=== PATIENT | male | born 1990 | race Caucasian/White ===

== ENCOUNTER 2017-03-25 07:46 | Day surgery (SDC) | payer BC ==
[2017-03-20 13:22] VITALS: BMI 21.6
[2017-03-25] MEDS ORDERED: LIDOCAINE HCL 1%, 10 MG/ML (20ML VIAL) ONE (08:37)
[2017-03-25] MEDS ORDERED: LIDOCAINE HCL 2% (20ML MULTI-DOSE VIAL) NR ONE (08:37)
[2017-03-25] MEDS ORDERED: LIDOCAINE 1%/EPI 1:100000 (20 ML MULTI DOSE VIAL) ONE (08:38)
[2017-03-25] MEDS ORDERED: BUPIVACAINE HCL/PF 0.5% (5MG/ML) 10 ML VIAL ONE (08:38)
[2017-03-25] MEDS ORDERED: BUPIVACAINE HCL/PF 2.5 MG/ML - 30 ML VIAL IJ ONE (08:38)
[2017-03-25] MEDS ORDERED: MIDAZOLAM HCL 2 MG/2 ML SINGLE DOSE VIAL ONE (09:00)
[2017-03-25] MEDS ORDERED: ceFAZolin SODIUM 1 GM VIAL ONE (09:36)
[2017-03-25] MEDS ORDERED: LIDOCAINE 1%/EPI 1:100000 (50 ML MULTI DOSE VIAL) INF ONE (09:46)
[2017-03-25] MEDS ORDERED: ONDANSETRON 4 MG/2 ML VIAL ONE (09:46)
--- NOTE | 2017-03-25 10:39 | OP ---
DATE OF OPERATION: 03/25/2017 PREOPERATIVE DIAGNOSIS: Scalp cyst. POSTOPERATIVE DIAGNOSIS: Scalp cyst. PROCEDURE: Excision of scalp cyst with 5-mm wound closure. SURGEON: Srinivas Myrick MD PATIENT ASSISTANT: None. ANESTHESIA: Bambi Bales MD (MAC/1% lidocaine with epinephrine approximately 10 mL). ESTIMATED BLOOD LOSS: Minimal. SPECIMENS: Cyst. INDICATION FOR THE PROCEDURE: This is a gentleman with a chronic scalp cyst that is causing him discomfort and he wishes to have this removed. DESCRIPTION OF PROCEDURE: The patient was identified and appropriately positioned on the operating room table. After intravenous sedation, the area was prepped and draped in the usual sterile fashion with Betadine. Lidocaine 1% with epinephrine was used for anesthesia of approximately 10 mL. The skin around the cyst was incised in elliptical fashion orientated longitudinally. The cyst was excised en bloc and intact. Hemostasis was achieved with cautery as needed. The wound reapproximated in layers. The dermis was closed with interrupted buried 3-0 chromic suture and the skin closed with interrupted vertical mattress Prolene followed by Dermabond. At the conclusion of the case, sponge and needle counts were correct. Brief operative note handwritten on the preprinted form. Joselyn FALCON [id number] MTDD
[2017-03-25 11:41] VITALS: TEMP 98.1
[2017-03-25 11:44] VITALS: BP 121/71; PULSE 82
--- NOTE | 2017-03-26 13:34 | PATH ---
Surgical Pathology Report Patient Name: TIFF CRUZ [facility]. Rec. #: [id number] /Age/Gender: 1990 (Age: 26) / M Account: [id number] Location: [facility] AMBULATORY Taken: 03/25/2017 Received: 03/25/2017 Reported: 03/26/2017 Physicians: Srinivas Myrick Specimen(s) Received SCALP CYST Clinical History Scalp cyst Final Diagnosis SKIN, SCALP, EXCISION: BENIGN TRICHILEMMAL CYST. Electronically Signed Alexsander Baca M.D. Gross Description Received in formalin labeled "scalp cyst," is a 2.7 x 1.3 cm baker, elliptical, unoriented portion of skin excised to depth of 0.8 cm. The epidermal surface is unremarkable. Sectioning reveals an intact cyst. Bottle Sorter sections are submitted in one cassette. /03/25/2017 saudi03/25/2017
== END 2017-03-25 10:45 | disposition home or self-care (01) ==
LOC: FASU 07:46 → EDBD 11:30
PROVIDERS: ATTEND Surgery
PROC: 0JB00ZZ Excision of Scalp Subcutaneous Tissue and Fascia, Open Approach (ICD-10-PCS; principal; 2017-03-25 09:40)
DX: D21.0 Benign neoplasm of connective and other soft tissue of head, face and neck (principal)
CPT/HCPCS: 88304-TC